=== PATIENT | female | born 1970 | race Caucasian/White ===

== ENCOUNTER 2021-11-03 06:06 | Outpatient (REF) | payer BC, SELFPAY | END 2021-11-03 06:07 | disposition home or self-care (01) | LOC: HO.HMGCLDS 06:06 | PROVIDERS: PCP Physician Assistant; Visit Provider Internal Medicine | DX: Z20.822 Contact with and (suspected) exposure to COVID-19 (principal) | CPT/HCPCS: C9803; U0003; U0005 ==